=== PATIENT | female | born 1985 | race Caucasian/White ===

== ENCOUNTER 2016-08-24 17:32 | Inpatient (IN) | payer BC, OTHER ==
[~2016-08-24] VITALS: Ht 160 cm; Wt 48.1 kg
[~2016-08-24 17:32] MED LIST: GABA600T2 PO
[2016-08-24 21:20] VITALS: BP 155/105
--- NOTE | 2016-08-24 21:20 | NUR ---
PRE-ADMISSION Pre-admission assessment performed in the intake department of [facility]. Pt is a 30 yo female. She is A&O and ambulatory with a steady gait. She appears anxious but not intoxicated and answers all questions appropriately. Vital signs are B/P 155/105, HR 97, RR 18, O2 sat 97%, T 97.9, pain 0/10. She reports that she has been using heroin with occasional ETOH, xanax, methamphetamine, and cocaine use. She used heroin and methamphetamine prior to admission. Pt denies food or drug allergies. [facility].
[2016-08-24 21:37] LABS: *URINE HCG, QUAL NEGATIVE (NEGATIVE)
[2016-08-24 21:45] LABS: *AMPHETAMINE, URINE POSITIVE (NEGATIVE); *BARBITURATE, URINE NEGATIVE (NEGATIVE); *CANNABINOID, URINE POSITIVE (NEGATIVE); *COCCAINE, URINE POSITIVE (NEGATIVE); *OPIATE, URINE POSITIVE (NEGATIVE); *PHENCYCLIDINE SCREEN,URINE NEGATIVE (NEGATIVE)
[2016-08-24] MEDS ORDERED: ONDANSETRON 4 MG/2 ML VIAL IM PRN (21:45)
[2016-08-24] MEDS ORDERED: MIRALAX 17 GM POWD.PACK PO PRN (21:45)
[2016-08-24] MEDS ORDERED: diphenhydrAMINE 50 MG CAPSULE PO PRN (21:45)
[2016-08-24] MEDS ORDERED: CLONIDINE HCL 0.1 MG TABLET PO PRN (21:45)
[2016-08-24] MEDS ORDERED: BUPRENORPHINE HCL 2 MG TAB.SUBL SL PRN (21:45)
[2016-08-24] MEDS ORDERED: THIAMINE HCL 200 MG/2 ML VIAL IM ONE (21:45)
[2016-08-24] MEDS ORDERED: LORAZEPAM 1 MG TABLET PO PRN ×2 (21:45)
[2016-08-24] MEDS ORDERED: DICYCLOMINE HCL 20 MG TABLET PO PRN (21:45)
[2016-08-24] MEDS ORDERED: MAGNESIUM HYDROXIDE 30 ML LIQUID UDC PO PRN (21:45)
[2016-08-24] MEDS ORDERED: ONDANSETRON ODT 4 MG TAB.RAPDIS SL PRN (21:45)
[2016-08-24] MEDS ORDERED: METHOCARBAMOL 750 MG TABLET PO PRN (21:45)
[2016-08-24] MEDS ORDERED: MAG HYDROX/AL HYDROX/SIMETH 30 ML LIQUID UDC PO PRN (21:45)
[2016-08-24] MEDS ORDERED: ACETAMINOPHEN 325 MG TABLET PO PRN (21:45)
[2016-08-24] MEDS ORDERED: LORAZEPAM 2 MG/1 ML VIAL IM PRN (21:45)
[2016-08-24] MEDS ORDERED: IBUPROFEN 400 MG TABLET PO PRN (21:45)
[2016-08-24] MEDS ORDERED: HYDROXYZINE PAMOATE 25 MG CAPSULE PO PRN (21:45)
[2016-08-24] MEDS ORDERED: LOPERAMIDE HCL 2 MG CAPSULE PO PRN ×2 (21:45)
--- NOTE | 2016-08-24 22:14 | NUR ---
PRN Ativan administration Pt is moderately anxious and unable to relax upon admission. She is cooperative. B/P 155/105 and HR 97. She appears uneasy. Pt admits to using methamphetamine and heroin at 1700 today. CIWA 7 and COWS 5. PRN Ativan administered.
[2016-08-24] MEDS ORDERED: LORAZEPAM 1 MG TABLET ONE (22:20)
[2016-08-24 23:15] VITALS: BP 147/102
--- NOTE | 2016-08-24 23:20 | NUR ---
ADMISSION Pt is a 30 yo female who arrived on the [facility] at 2135 on 08/24/16 for medically supervised detox. She is A&O x4 and ambulatory. Body check performed by [employer] FORMER MACHINE and skin check performed by the nurse. She was oriented to the unit and her room. She reports no known food or drug allergies, is full code status, and on a regular diet. Pt is anxious but does not appear intoxicated, and answers all questions appropriately. Vitals in intake B/P 155/105, HR 97, RR 18, O2 sat 99%, T 98.0, pain 0/10. She is 5'3" and weighs 106lb. Pt admits to using heroin and methamphetamine today at 1700. She has a PMH of Hepatitis C, vascular cyst removal, broken collar bone 2011, HPV, suicide attempt by drug overdose 2.5 years ago, depression, anxiety, and borderline personality disorder. She was placed on a 5150 1.5 years ago by her treatment center because she was voicing SI. Pt currently denies SI/HI. She reports that she "might have had a seizure" 6 months ago while under the influence of drugs. Lung sounds clear, PERRLA, brisk capillary refill, bowel sounds present, skin is intact. She reports LMP 08/11/16 and last BM today. Urine sample provided for UDS and test. History of Use 1) ETOH 4 beers on 2 days per week for the past 10 years. Last drank vodka 8oz on 08/23/16. She has used ETOH for 13 years 2) Xanax 4mg 1x/month for the past 6 months. Last used 4mg on 08/20/16. 3) Heroin 1.5-2 grams per day for the past 8 months. Last used 0.25 grams on 08/24/16 at 1700. She has used heroin for 6 years. 4) Methamphetamine 0.5 grams 1x/week for the past 4 years. Last used 0.25 grams 08/24/16 at 1700. 5) Cocaine 0.5 grams 1x/month for the past 6 years. Last used 08/22/16 6) Marijuana 0.5 grams per day for the past 13 years. Last used 08/24/16 Treatment History [facility] 11/2015 [facility] [place] 10/2015 "I've been in and out" Pt smokes 10 cigarettes per day. Symptoms when she doesn't use include "hot and cold, sweaty, runny nose, watery eyes, achy, irritable, can't get comfortable in bed." She decided to come to treatment because "I want to get off heroin". This admission will be different because "I'm taking my mental health aspect seriously". Pt's longest period of sobriety was 2 years at age 19. She does not have a primary care physician. COWS 5 and CIWA 7 on admission. Admission orders received. Pt educated regarding use of the call light and all questions answered. Fall precautions in place. Bed is down with call light in reach.
--- NOTE | 2016-08-24 23:30 | NUR ---
PRN Ativan reassessment PRN Ativan somewhat effective. Pt reports feeling slightly less anxious. B/P 147/102 and HR 98. She has been downstairs smoking cigarettes. Encouraged smoking cessation to improve B/P.
[2016-08-25] VITALS: BP 147/102
[2016-08-25 00:20] LABS: BASOPHILS % (AUTO) 0.6 % (0.0-2.0); EOSINOPHILS # (AUTO) 0.1 K/uL (0.0-0.7); EOSINOPHILS % (AUTO) 1.3 % (0.0-7.0); HEMATOCRIT 41.9 % (37-47); HEMOGLOBIN 13.9 G/DL (12.0-16.0); LYMPHOCYTES # (AUTO) 2.3 K/UL (0.8-4.8); LYMPHOCYTES % (AUTO) 31.2 % (20.5-51.5); MEAN CORPUSCULAR HEMOGLOBIN 30.7 UUG (27.0-31.0); MEAN CORPUSCULAR HGB CONC 33 g/dL (32.0-37.0); MEAN CORPUSCULAR VOLUME 92.4 FL (81.0-99.0); MONOCYTES # (AUTO) 0.5 K/UL (0.1-1.30); MONOCYTES % (AUTO) 6.4 % (0.0-11.0); NEUTROPHILS # (AUTO) 4.6 K/UL (1.8-8.9); NEUTROPHILS % (AUTO) 60.5 % (38.5-71.5); PLATELET COUNT (AUTO) 259 K/UL (150-450); RED BLOOD CELL COUNT(AUTO) 4.54 MIL/UL (4.2-5.4); WHITE BLOOD COUNT (AUTO) 7.5 K/UL (4.0-11.2)
--- NOTE | 2016-08-25 00:21 | NUR ---
PRN Clonidine and Benadryl administration Pt c/o feeling anxious and unable to relax to fall asleep. She cannot sit in bed and continuously gets up to walk around the room. She also continues to go downstairs to smoke cigarettes. B/P 147/102 and HR 98. PRN Clonidine and Benadryl administered.
[2016-08-25] MEDS ORDERED: diphenhydrAMINE 50 MG CAPSULE ONE (00:27)
[2016-08-25] MEDS ORDERED: CLONIDINE HCL 0.1 MG TABLET ONE (00:27)
[2016-08-25 00:29] LABS: ETHANOL < 3 MG/DL (0-0)
[2016-08-25 00:30] LABS: ALANINE AMINOTRANSFERASE 17 U/L (14-59); ALKALINE PHOSPHATASE 69 U/L (50-136); AMYLASE 55 U/L (25-115); ASPARTATE AMINOTRANSFERASE 18 U/L (15-37); BILIRUBIN,TOTAL 0.6 mg/dL (0.2-1.0); CARBON DIOXIDE 32 mmol/L (21-32); CHLORIDE 96 mmol/L (98-107); CREATININE 0.7 mg/dL (0.6-1.3); GLUCOSE 115 mg/dL (74-106); LIPASE 105 U/L (73-393); MAGNESIUM 2.1 mg/dL (1.8-2.4); POTASSIUM 3.2 mmol/L (3.5-5.1); TOTAL PROTEIN, SERUM 8.3 g/dL (6.4-8.2); UREA NITROGEN, BLOOD 10 mg/dL (7-18)
[2016-08-25 00:43] LABS: THYROID STIMULATING HORMONE 3.353 mIU/mL (0.358-3.740)
[2016-08-25 01:24] VITALS: BP 145/97
--- NOTE | 2016-08-25 01:25 | NUR ---
PRN Clonidine and Benadryl reassessment PRN Clonidine somewhat effective. PRN Benadryl not yet effective. Pt reports feeling somewhat more relaxed but is still unable to fall asleep. Encouraged relaxation. B/P 145/97 and HR 95.
[2016-08-25] MEDS ORDERED: POTASSIUM CHLORIDE 20 MEQ TAB.PRT.SR PO ONE (01:30)
--- NOTE | 2016-08-25 01:30 | NUR ---
Potassium replaced K Dur administered for K level 3.2
[2016-08-25 02:30] VITALS: BP 151/102
--- NOTE | 2016-08-25 02:36 | NUR ---
PRN Ativan Pt c/o "hearing things". She is in bed, appears uneasy, and is staring out into the [place]. She is crying. Pt explains that she understands that she is being paranoid but "cannot help it". Provided calming reassurance. B/P 151/102 and HR 104. CIWA 16 and COWS 5. PRN Ativan administered.
[2016-08-25] MEDS ORDERED: LORAZEPAM 1 MG TABLET ONE ×2 (02:39→02:44)
[2016-08-25 04:00] VITALS: BP 126/86
--- NOTE | 2016-08-25 04:00 | NUR ---
PRN Ativan reassessment PRN Ativan effective. Pt is lying comfortably in bed resting with eyes closed. B/P 126/86, HR 88, RR 16, O2 sat 98%.
[2016-08-25] MEDS ORDERED: QUET50TA PO (04:59)
--- NOTE | 2016-08-25 07:03 | NUR ---
END OF SHIFT Report provided to day shift nurse. Pt is lying in bed resting. He is a 31 yo male admitted to [facility] on 08/21 for opioid dependence. He is A&O x4 and ambulatory with a below the knee prosthetic. His gait is steady. Allergies to meperidine, full code status, and on a regular diet. He has a PMH of HTN, left below the knee amputation, anxiety, and depression. Antibiotic ointment ordered for left stump folliculitis. On admission he reported using hydrocodone 160-200mg per day. Pt started a 5 day subutex taper on 08/21. He had visible sweat while sleeping. PRN Naproxen and Tylenol administered for left leg pain. He woke up with coughing with acid reflux and reports "I think I aspirated". Lung sounds clear. PRN Mylanta administered and pt was able to go back to sleep. Last COWS 5. He drank 2840mL and slept for 6 hours. Fall precautions in place. Bed is down with call light in reach. Addendum: 08/25/16 at 0705 by BRIT WEINER RN Disregard note. Incorrect patient.
--- NOTE | 2016-08-25 07:19 | NUR ---
END OF SHIFT Report provided to day shift nurse. Pt is lying in bed resting. She is a 30 yo female admitted to [facility] on 08/24 for Opiate dependence with a h/o xanax, ETOH, methamphetamine, cocaine, and marijuana use. She is A&O and ambulatory. She was experiencing anxiety with elevated B/P and HR. She was unable to relax. Pt reported auditory hallucinations. PRN Ativan 1mg, PRN Ativan 2mg, PRN Clonidine, and PRN Benadryl administered. Pt was eventually able to relax in bed. She drank 710mL and slept for 2 hours.
[2016-08-25 08:00] VITALS: BP 109/64
--- NOTE | 2016-08-25 08:00 | NUR ---
START OF SHIFT NOTE Patient is orientated and alert X4. Patient is laying in bed, respirations are even and unlabored. Vital signs this morning are stable. Last CIWA 2 COWS 2 at 0800. Patient slept 2 hours last night according to night nurse. Patients mood is flat and calm. Patient reports having body aches and states she "slept like shit". All safety measures in place; call light within reach, bed in lowest position and locked. will continue to monitor patient.
[2016-08-25] MEDS ORDERED: TUBERCULIN,PURIF.PROT.DERIV. 5 TU/0.1 ML TEST ID ONE (09:00)
[2016-08-25] MEDS ORDERED: MULTIVITAMINS,THERAPEUTIC TABLET PO SCH (09:00)
[2016-08-25] MEDS ORDERED: LORAZEPAM 1 MG TABLET PO SCH (09:00)
[2016-08-25] MEDS ORDERED: FOLIC ACID 1 MG TABLET PO SCH (09:00)
[2016-08-25] MEDS: BUPRENORPHINE HCL 2 MG TAB.SUBL SL SCH ×2 (09:00→13:00)
[2016-08-25] MEDS ORDERED: THIAMINE HCL 100 MG TABLET PO SCH (09:00)
--- NOTE | 2016-08-25 09:00 | NUR ---
MEDICATION NOT GIVEN Subutex not given this morning at 0900 due to not meeting criteria. COWS 2. Dr. Dar muller.
[2016-08-25] MEDS ORDERED: LORAZEPAM 1 MG TABLET PO PRN ×2 (11:00)
[2016-08-25 12:00] VITALS: BP 111/75
[2016-08-25] MEDS ORDERED: Medication Not On Formulary EA (Gabapentin 1 TAB) PO SCH (13:00)
[2016-08-25] MEDS ORDERED: GABAPENTIN 300 MG CAPSULE PO SCH (13:00)
--- NOTE | 2016-08-25 13:00 | NUR ---
Medications held Pt gabapentin and subutex held d/t pt sedation, VS are WNL. Respirations are even and unlabored. Will continue to monitor pt.
--- NOTE | 2016-08-25 16:53 | NUR ---
AMA Patient left AMA, patient refused to comply with treatment, pt stated that she was not ready for detox at this time. Patient educated about the risk and consequences of leaving AMA, patient verbalized understanding but was adamant about leaving. Multiple staff members including doctors, patient advocates and nurses attempted to reason with patient without any success, VS WNL skin intact patient denies any suicidal or homicidal ideations. Patients psychiatrist and MD were notified and aware. Patient was given a list of community resources, AMA forms explained and signed. All belonging returned to patient; patient ambulated off of unit with EMBEDDED DEVELOPER, left facility AMA on 08/25/2016 at 1653.
[2016-08-25] MEDS ORDERED: QUETIAPINE FUMARATE 25 MG TABLET PO SCH (21:00)
[2016-08-26] MEDS ORDERED: LORAZEPAM 1 MG TABLET PO SCH (09:00)
[2016-08-26] MEDS ORDERED: BUPRENORPHINE HCL 2 MG TAB.SUBL SL SCH (09:00)
[2016-08-26 14:09] LABS: HEPATITIS B SURFACE AG Negative (Negative)
[2016-08-27] MEDS ORDERED: LORAZEPAM 1 MG TABLET PO SCH (09:00)
[2016-08-27] MEDS ORDERED: BUPRENORPHINE HCL 2 MG TAB.SUBL SL SCH ×2 (09:00→15:00)
[2016-08-28] MEDS ORDERED: LORAZEPAM 1 MG TABLET PO SCH (09:00)
[2016-08-28] MEDS ORDERED: BUPRENORPHINE HCL 2 MG TAB.SUBL SL SCH (09:00)
[2016-08-29] MEDS ORDERED: LORAZEPAM 1 MG TABLET PO SCH (09:00)
[2016-08-29] MEDS ORDERED: BUPRENORPHINE HCL 2 MG TAB.SUBL SL SCH (09:00)
== END 2016-08-25 18:40 | disposition left against medical advice (07) | DRG 894 ==
LOC: SRC 20:44
PROVIDERS: ADMIT Internal Medicine; ATTEND Internal Medicine
PROC: HZ2ZZZZ Detoxification Services for Substance Abuse Treatment (ICD-10-PCS; principal; 2016-08-24)
DX: F11.23 Opioid dependence with withdrawal (principal); E87.1 Hypo-osmolality and hyponatremia; F13.20 Sedative, hypnotic or anxiolytic dependence, uncomplicated; F10.230 Alcohol dependence with withdrawal, uncomplicated; Y90.9 Presence of alcohol in blood, level not specified; F15.93 Other stimulant use, unspecified with withdrawal; E87.6 Hypokalemia; F14.10 Cocaine abuse, uncomplicated; F41.1 Generalized anxiety disorder; F32.9 Major depressive disorder, single episode, unspecified; Z91.5 Personal history of self-harm; F17.210 Nicotine dependence, cigarettes, uncomplicated
CPT/HCPCS: 36415; 80307; 80324; 80349; 80353; 80361; 83690; 83735; 84443; 84703; 85025; 86580; 86592; 86705; 86803; 87340; 87806; G0480; J3411; Q0163